=== PATIENT | female | born 1965 | race Caucasian/White ===

== ENCOUNTER 2021-12-18 17:57 | Emergency (ER) | payer MEDICARE ==
[~2021-12-18] VITALS: Ht 162.6 cm; Wt 108.1 kg
[2021-12-18] MEDS ORDERED: SEROQUEL100 MG PO (18:14)
[2021-12-18] MEDS ORDERED: TYLENOL EXTRA500 MG PO (18:14)
[2021-12-18] MEDS ORDERED: LEVOTHYROXINE50 MC1 (18:14)
[2021-12-18] MEDS ORDERED: MINIPRESS2 MG PO (18:14)
[2021-12-18] MEDS ORDERED: TRILEPTAL600 MG PO (18:14)
== END 2021-12-18 19:04 | disposition home or self-care (01) ==
LOC: FSED 18:20
DX: R60.9 Edema, unspecified (principal); I87.2 Venous insufficiency (chronic) (peripheral); R03.0 Elevated blood-pressure reading, without diagnosis of hypertension; E03.9 Hypothyroidism, unspecified; F43.10 Post-traumatic stress disorder, unspecified; M54.9 Dorsalgia, unspecified; G89.29 Other chronic pain; F17.210 Nicotine dependence, cigarettes, uncomplicated
CPT/HCPCS: 99282

== ENCOUNTER 2022-11-22 07:09 | Inpatient (IN) | payer MEDICARE ==
[2022-11-18 11:59] LABS: BASOPHILS % 0.4 % (0.0-1.0); EOSINOPHILS # (AUTO) 0.1 (0.0-0.4); EOSINOPHILS % 1.3 % (0.0-6.0); HEMATOCRIT 43.1 % (34.2-44.1); HEMOGLOBIN 14.2 g/dL (12.0-16.0); LYMPHOCYTES # (AUTO) 2.8 (1.0-3.2); LYMPHOCYTES % 30.8 % (18.0-39.1); MEAN CORPUSCULAR HEMOGLOBIN 32.6 pg (28-32); MEAN CORPUSCULAR HGB CONC 32.9 g/dL (31-35); MEAN CORPUSCULAR VOLUME 98.9 fL (81-99); MONOCYTES # (AUTO) 0.5 (0.2-0.8); MONOCYTES % 5.6 % (4.4-11.3); NEUTROPHILS # (AUTO) 5.5 (2.1-6.9); NEUTROPHILS % 61.7 % (38.7-80.0); PLATELET COUNT 275 x10e3/uL (140-360); RED BLOOD COUNT 4.36 x10e6/uL (3.6-5.1); RED CELL DISTRIBUTION WIDTH 13.3 % (11.7-14.4)
[~2022-11-22] VITALS: Ht 162.6 cm; Wt 100.2 kg
[~2022-11-22 07:09] MED LIST: BUPIVACAINE 0.25% 30ML SDV ONE; CEFAZOLIN SODIUM 2 GM ONE; CYMBALTA30 MG PO; FIBRIN FROZEN 2 ML SPRAY.GEL TOP ONE; HYDROGEN PEROXIDE 120 ML BTL ONE; LEVOTHYROXINE50 MC1; MINIPRESS2 MG PO; SEROQUEL100 MG PO; TRILEPTAL600 MG PO; TYLENOL EXTRA500 MG PO
[2022-11-22] MEDS ORDERED: EPHEDRINE SULFATE INJ 50 MG/ML VIAL ONE (08:05)
[2022-11-22] MEDS ORDERED: ROCURONIUM BROMIDE 10 MG/ML 5ML VIAL IV ONE (08:05)
[2022-11-22] MEDS ORDERED: LIDOCAINE HCL 2% LOCAL INJ 5 ML SDV VIAL INJ ONE (08:05)
[2022-11-22] MEDS ORDERED: POVIDONE IODINE 0.05% 0.05 % ML PO ONE (08:05)
[2022-11-22] MEDS ORDERED: PROPOFOL IV EMULSION 10 MG/ML 20 ML VIAL ONE (08:05)
[2022-11-22] MEDS ORDERED: GLYCOPYRROLATE INJ 0.2 MG/ML VIAL ONE (08:05)
[2022-11-22] MEDS ORDERED: DEXAMETHASONE SOD PHOS INJ 4 MG/ML SDV ONE (08:05)
[2022-11-22] MEDS ORDERED: SEVOFLURANE INHAL SOLN 250 ML PEN BTL ONE (08:05)
[2022-11-22] MEDS ORDERED: NEOSTIGMINE 1 MG/ML 10ML VIAL ONE (08:05)
[2022-11-22] MEDS ORDERED: METOCLOPRAMIDE HCL 10 MG/2ML VIAL ONE (08:05)
[2022-11-22] MEDS ORDERED: SCOPOLAMINE 1 MG PATCH TOP SCH (08:15)
[2022-11-22] MEDS ORDERED: BUPIVACAINE HCL 0.25% 10ML MPF VIAL INJ ONE (08:26)
[2022-11-22] MEDS: ONDANSETRON HCL INJ 2MG/ML 2ML 2 MG/ML VIAL IV PRN ×2 (09:24→18:30)
[2022-11-22] MEDS ORDERED: FENTANYL CITRATE/PF 100MCG/2 ML INJ ONE ×2 (09:34→12:09)
[2022-11-22] MEDS ORDERED: PROMETHAZINE HCL (IM) 25 MG/ML VIAL IM ONE (09:49)
[2022-11-22] MEDS ORDERED: SCOPOLAMINE 1 MG PATCH ONE (10:36)
[2022-11-22] MEDS ORDERED: HYDROMORPHONE 1MG/1ML INJ ONE (11:38)
[2022-11-22] MEDS ORDERED: MIDAZOLAM HCL 2 MG/2 ML VIAL ONE (12:09)
[2022-11-22 13:08] VITALS: BP 118/69
[2022-11-22] MEDS: SODIUM CHLORIDE 0.9% 1000ML 1,000 ML IV SCH ×2 (14:15→21:03)
[2022-11-22 14:18] VITALS: BP 118/69
[2022-11-22 14:32] VITALS: BP 118/69
[2022-11-22 16:09] VITALS: BP 125/77
[2022-11-22] MEDS: HYDROCODONE/APAP 7.5MG-325MG 1 EA TAB PO PRN ×2 (18:33→23:41)
[2022-11-22 19:51] VITALS: BP 133/78
[2022-11-22 20:00] VITALS: BP 133/78
[2022-11-22] MEDS: ENOXAPARIN SOD INJ 40 MG/0.4 ML SYR SC SCH (21:03)
[2022-11-22] MEDS: PROMETHAZINE 12.5MG/ NACL 0.9% 12.5 MG/50 ML BAG IV PRN (21:59)
[2022-11-23] VITALS: BP 139/82
[2022-11-23] MEDS: Morphine 2mg Syringe 2 MG/ML SYR IV PRN ×2 (00:21→09:42)
[2022-11-23] MEDS: PROMETHAZINE 12.5MG/ NACL 0.9% 12.5 MG/50 ML BAG IV PRN ×2 (03:54→09:43)
[2022-11-23 04:00] VITALS: BP 123/55
[2022-11-23] MEDS: SODIUM CHLORIDE 0.9% 1000ML 1,000 ML IV SCH (05:13)
[2022-11-23 05:50] LABS: BASOPHILS % 0.3 % (0.0-1.0); EOSINOPHILS % 0.1 % (0.0-6.0); HEMATOCRIT 37.5 % (34.2-44.1); HEMOGLOBIN 12.2 g/dL (12.0-16.0); LYMPHOCYTES # (AUTO) 1.9 (1.0-3.2); LYMPHOCYTES % 18.3 % (18.0-39.1); MEAN CORPUSCULAR HEMOGLOBIN 32.5 pg (28-32); MEAN CORPUSCULAR HGB CONC 32.5 g/dL (31-35); MONOCYTES # (AUTO) 0.7 (0.2-0.8); NEUTROPHILS # (AUTO) 7.6 (2.1-6.9); PLATELET COUNT 217 x10e3/uL (140-360); RED BLOOD COUNT 3.75 x10e6/uL (3.6-5.1); RED CELL DISTRIBUTION WIDTH 13.2 % (11.7-14.4)
[2022-11-23 06:13] LABS: ALBUMIN 3.2 g/dL (3.5-5.0); ALBUMIN/GLOBULIN RATIO 1.2 (0.8-2.0); ANION GAP 12.9 mmol/L (8-16); CALCIUM 8.5 mg/dL (8.4-10.2); CREATININE, SERUM 0.57 mg/dL (0.57-1.11); MAGNESIUM 1.7 MG/DL (1.3-2.1); PHOSPHORUS 3.2 MG/DL (2.3-4.7); POTASSIUM 3.9 mmol/L (3.5-5.1)
[2022-11-23 07:53] VITALS: BP 147/80
[2022-11-23 08:35] VITALS: BP 147/80
[2022-11-23] MEDS: ENOXAPARIN SOD INJ 40 MG/0.4 ML SYR SC SCH (08:40)
[2022-11-23] MEDS ORDERED: METOCLOPRAMIDE HCL 10 MG/2ML VIAL IV ONE (11:00)
[2022-11-23 11:31] VITALS: BP 116/67
[2022-11-23] MEDS ORDERED: OXCARBAZEPINE 300 MG TAB PO SCH (17:00)
[2022-11-23] MEDS ORDERED: QUETIAPINE FUMARATE 100 MG TAB PO SCH (21:00)
[2022-11-24] MEDS ORDERED: LEVOTHYROXINE SODIUM 50 MCG TAB PO SCH (06:00)
[2022-11-24] MEDS ORDERED: DULOXETINE HCL 30 MG DELAYED RELEASE PO SCH (09:00)
== END 2022-11-23 14:00 | disposition home or self-care (01) | DRG 621 ==
LOC: OR 07:09 → PACU V 08:07 → MED/SURG 12:26
PROVIDERS: ADMIT Internal Medicine; ATTEND Internal Medicine
PROC: 0DB64Z3 Excision of Stomach, Percutaneous Endoscopic Approach, Vertical (ICD-10-PCS; principal; 2022-11-22 07:58)
DX: E66.01 Morbid (severe) obesity due to excess calories (principal); G47.33 Obstructive sleep apnea (adult) (pediatric); Z88.1 Allergy status to other antibiotic agents; Z88.8 Allergy status to other drugs, medicaments and biological substances; F31.9 Bipolar disorder, unspecified; Z20.822 Contact with and (suspected) exposure to COVID-19; E03.9 Hypothyroidism, unspecified; Z79.899 Other long term (current) drug therapy; Z68.38 Body mass index [BMI] 38.0-38.9, adult; K76.0 Fatty (change of) liver, not elsewhere classified
CPT/HCPCS: 0223U; 36415; 80053; 83735; 84100; 85025; 93005; 94799; C1713; J1100; J1170; J1650; J2001; J2250; J2270; J2405; J2550; J2710; J2765; J3010; J7030